=== PATIENT | male | born 2000 | race Two or more races ===

== ENCOUNTER 2025-06-26 19:09 | Emergency (ER) | payer OTHER, MEDICAID, SELFPAY ==
[2025-06-26 19:10] VITALS: BMI 31.3
[2025-06-26 19:24] VITALS: BP 132/81; PULSE 62; RESP 18; TEMP 37.1; O2SAT 98
--- NOTE | 2025-06-26 19:59 | EKG_ITS ---
[facility] Test Date: 2025-06-26 Pat Name: SIMONE CEE Department: Room: - Gender: Male [employer] Operations Manager: : 2000 Requested By: Rj Bishop Order Number: [id number] Reading MD: Rj Bishop Measurements Intervals [place] Rate: 52 P: 26 HI: 151 QRS: 62 QRSD: 103 T: 49 QT: 386 QTc: 361 Interpretive Statements SINUS BRADYCARDIA NONSPECIFIC T-WAVE ABNORMALITY No previous ECG available for comparison /store/S0/[id number]/ecg/[id number].pdf
--- NOTE | 2025-06-26 20:13 | EDNOTE_ITS ---
ED General RME/HPI General Chief complaint: Anxiety Stated complaint: ANXIOUS Time Seen by Provider: 06/26/25 19:58 Arrival date/time: 06/26/25 19:09 CC: Chest pain HPI I think him having an anxiety attack HPI onset approximately 4 hours ago patient is awake alert oriented nontoxic-appearing not in any acute distress no other complaints at this time. Related Data Previous Rx's ?Medication ?Instructions ?Recorded ibuprofen 800 mg tablet 800 mg PO TID PRN pain #30 t abs 04/05/21 aluminum-mag hydroxide-simethicone 5 ml PO Q3H #355 mL 05/21/22 200 mg-200 mg-20 mg/5 mL oral susp (Maalox Advanced) famotidine 10 mg tablet 10 mg PO QDAY #30 tabs 05/21 ondansetron HCl 4 mg tablet 4 mg PO TID #20 tabs 05/21 Allergies Allergy/AdvReac Type Severity Reaction Status Date / Time No Known Allergies Allergy Verified 06/26/25 19:10 Review of Systems Review of Systems Narrative Review of Systems: GEN: No fever, no chills, no weight loss EYES: No discharge, no visual changes, no pain HEENT: No ear pain, no congestion, no sore throat PULM: No shortness of breath, no cough, no congestion CV: + chest pain, no dyspnea on exertion, no palpitations GI: No nausea, no vomiting, no diarrhea, no pain, no constipation : No frequency, no urgency, no dysuria MUSC/SKEL: No joint pain, no back pain SKIN: No rash PSYCH: No hallucinations, no depression HEME/LYMPH: No easy bleeding or bruising tendencies NEURO: No weakness, no headache Past Medical History Social History SMOKING STATUS: Never smoker SUBSTANCE USE: does not use ED Exam Narrative Physical exam: [General: Not in any acute distress Head normocephalic HEENT: Within acceptable limits Neck is supple nontender Chest equal chest rise nontender to palpation Respiratory: Clear to auscultation no wheezes crackles or rubs CV: Rate rhythm is regular, bradycardic no murmurs rubs or clicks Abdomen is soft nontender no masses positive bowel sounds all 4 quadrants Back: No CVA tenderness no spinous process tenderness from cervical spine thoracic and lumbar spine Skin: Intact no petechiae rash induration ulceration or crepitus Extremities: Moving all extremity against resistance cap refill less than 2 seconds neurosensory intact Neuro: Awake alert oriented x3 Glascow coma 15 no focal deficits] Course Quality Measures none Orders Category Date Time Status EKG (ED ONLY) *Do not use* NOW Care 06/26/25 19:59 Completed EKG (ED Only) Stat Exams 06/26/25 19:59 Draft Vital Signs Vital signs: Vital Signs Temperature 98.7 F 06/26/25 19:24 Pulse Rate 62 06/26/25 19:24 Respiratory Rate 18 06/26/25 19:24 Blood Pressure 132/81 H 06/26/25 19:24 Pulse Oximetry (%) 98 06/26/25 19:24 Oxygen Delivery Method Room Air 06/26/25 19:24 Discharge Plan Plan Patient Disposition: HOME (Self Care) Patient condition on transfer: Stable Prescriptions/Referrals Prescriptions/Med Rec: No Action ibuprofen 800 mg tablet 800 mg PO TID PRN (Reason: pain) Qty: 30 0RF ondansetron HCl 4 mg tablet 4 mg PO TID Qty: 20 0RF famotidine 10 mg tablet 10 mg PO QDAY Qty: 30 0RF alum-mag hydroxide-simeth [Maalox Advanced] 200-200-20 mg/5 mL suspension 5 ml PO Q3H Qty: 355 0RF Referrals: Alexander Gan MD [Physician] - In 1 week Problem List Clinical Impression: Acute anxiety Patient/Caregiver Discharge Instructions Other Activity Instructions:: Your EKG shows you normal, I do suspect this is anxiety attack and not anything more serious please follow-up with your primary care provider. Education Materials: ED Anxiety Reaction Print Language: Mohawk Stand Alone Forms: Edith Award Info., Work/School Release, Patient Portal Info Letter PA/MONOTYPE OPERATOR Supervising Physician PA/MONOTYPE OPERATOR Supervising Physician: Rj Louie ENP [facility] Clinical Information Provided by patient Medical Records Reviewed None and [facility] Chronic Illness/Social Conditions which may negatively complicate care or outcome(s)-explain: None or not applicable EKG EKG Interpretation narrative: EKG performed at 21 shows ventricular rate of 5 2 SD interval 151 QRS of 103 QTc of 366 this is sinus bradycardia cardia nonspecific T wave abnormality. Imaging Imaging interpretation: none Radiology reports / interpretation(s): Patient has no acute finding patient is calm, not agitated not tachypneic or tachycardic low at a suspicion of any acute pathology we will discharge him home with anxiety attack
== END 2025-06-26 20:32 | disposition home or self-care (01) ==
LOC: SERX 20:26
PROVIDERS: Emergency Provider Emergency Medicine; PCP Physician Assistant
DX: F41.1 Generalized anxiety disorder (principal); R07.9 Chest pain, unspecified
CPT/HCPCS: 93005; 99283

== ENCOUNTER 2025-10-08 21:46 | Emergency (ER) | payer BC, MEDICAID, SELFPAY ==
[2025-10-08 21:48] VITALS: BP 146/92; PULSE 92; RESP 18; TEMP 36.6; O2SAT 97; BMI 31.3
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
== END 2025-10-08 22:12 | disposition home or self-care (01) ==
LOC: SERX 22:16
PROVIDERS: Emergency Provider Emergency Medicine
DX: Z02.89 Encounter for other administrative examinations (principal)
CPT/HCPCS: 99281